=== PATIENT | male | born 2000 | race Hispanic/Latino ===

== ENCOUNTER 2022-10-30 01:26 | Emergency (ER) | payer SELFPAY ==
[2022-10-30] MEDS ORDERED: AMOX/K CLAV 875 MG TAB ONE (02:24)
[2022-10-30] MEDS ORDERED: IBUPROFEN 400 MG TAB ONE (02:24)
--- NOTE | 2022-10-30 08:46 | ER ---
Nurse's Notes [facility] Name: Foster Muhammad Age: 22 yrs Sex: Male : 2000 Arrival Date: 10/30/2022 Time: 01:31 Bed 17 Private MD: Diagnosis: Otitis media, unspecified, bilateral Presentation: 10/30 01:51 Chief complaint: Patient states: left ear pain X2 days. loud popping, whistling and vc1 burping sounds. pain 7/10. Coronavirus screen: Client denies travel out of the [place] in the last 14 days. At this time, the client does not indicate any symptoms associated with coronavirus-19. Ebola Screen: No symptoms or risks identified at this time. Onset of symptoms was October 28, 2022. 01:51 Method Of Arrival: Ambulatory vc1 01:51 Acuity: MILAGROS 4 vc1 02:22 Initial Sepsis Screen: Does the patient meet any 2 criteria? No. Patient's initial vc1 sepsis screen is negative. Does the patient have a suspected source of infection? Yes: Other: ear. Risk Assessment: Do you want to hurt yourself or someone else? Patient reports no desire to harm self or others. Triage Assessment: 01:52 General: Appears in no apparent distress. comfortable, Behavior is calm, cooperative. vc1 Pain: Complains of pain in left ear. EENT: Reports decreased hearing pain ringing. Neuro: No deficits noted. Level of Consciousness is awake, alert, obeys commands, Oriented to person, place, time, situation. Cardiovascular: No deficits noted. Denies chest pain, shortness of breath, Capillary refill < 3 seconds Clubbing of nail beds is absent JVD is absent Patient's skin is warm and dry. Respiratory: No deficits noted. Airway is patent Trachea midline Respiratory effort is even, unlabored, Respiratory pattern is regular, symmetrical. GI: No deficits noted. No signs and/or symptoms were reported involving the gastrointestinal system. Abdomen is round non-distended. : No deficits noted. No signs and/or symptoms were reported regarding the genitourinary system. Derm: No deficits noted. No signs and/or symptoms reported regarding the dermatologic system. Skin is intact, is healthy with good turgor, Skin is dry, Skin is normal, Skin temperature is warm. Musculoskeletal: No deficits noted. No signs and/or symptoms reported regarding the musculoskeletal system. Circulation, motion, and sensation intact. Range of motion: intact in all extremities. Historical: - Allergies: 01:52 No Known Allergies; vc1 - Home Meds: 01:52 None [Active]; vc1 - PMHx: 01:52 None; vc1 - PSHx: 01:52 back; right wrist; vc1 - Immunization history:: Adult Immunizations up to date, Client reports having NOT received the Covid vaccine. Flu vaccine is not up to date. - Social history:: Smoking status: Patient denies any tobacco usage or history of. Patient uses alcohol, occasionally. Smoking status: Patient denies any tobacco usage or history of. Screenin:59 Humpty Dumpty Scale Fall Assessment Tool (age< 18yrs). Abuse screen: Denies threats or vc1 abuse. Nutritional screening: No deficits noted. Tuberculosis screening: No symptoms or risk factors identified. 02:23 [facility] ED Fall Risk Assessment (Adult) History of falling in the last 3 months, vc1 including since admission No falls in past 3 months (0 pts) Confusion or Disorientation No (0 pts) Intoxicated or Sedated No (0 pts) Impaired Gait No (0 pts) Mobility Assist Device Used No (0 pt) Altered Elimination No (0 pt) Score/Fall Risk Level 0 - 2 = Low Risk Oriented to surroundings, Maintained a safe environment. Vital Signs: 01:58 BP 140 / 85; Pulse 98; Resp 17; Temp 99.2; Pulse Ox 98% on R/A; vc1 ED Course: 01:31 Patient arrived in ED. es 01:37 Cal Chairez PA is PHCP. cp 01:37 Heri Cuenca MD is Attending Physician. cp 01:52 Triage completed. vc1 01:52 Arm band placed on right wrist. vc1 01:57 Zabrina Hamm, JOSEPH is Primary Nurse. vc1 02:22 No provider procedures requiring assistance completed. Patient did not have IV access vc1 during this emergency room visit. 02:23 Patient has correct armband on for positive identification. Bed in low position. Call vc1 light in reach. Pulse ox on. NIBP on. Administered Medications: 02:22 Drug: Amoxicillin-Clavulanate PO 875 mg Route: PO; vc1 02:22 Follow up: Response: Medication administered at discharge. vc1 02:22 Drug: Ibuprofen PO 800 mg Route: PO; vc1 02: Follow up: Response: Medication administered at discharge. vc1 Medication: :23 VIS not applicable for this client. vc1 Outcome: 02:11 Discharge ordered by . cp 02:22 Discharged to home ambulatory, with friend. vc1 02: Condition: good 02:22 Discharge instructions given to patient, Instructed on discharge instructions, follow up and referral plans. medication usage, Demonstrated understanding of instructions, follow-up care, medications, Prescriptions given X 2. :23 Patient left the ED. vc1 Signatures: Jaquelin Tejeda Corey, PA PA cp Calcote, Vanessa RN RN vc1
--- NOTE | 2022-10-30 08:46 | EDPHYS ---
Physician Documentation [facility] Name: Foster Muhammad Age: 22 yrs Sex: Male : 2000 Arrival Date: 10/30/2022 Time: 01:31 Bed 17 Private MD: ED Physician Heri Cuenca HPI: 10/30 02:06 This 22 yrs old presents to ER via Ambulatory with complaints of Ear Pain. cp 02:06 The patient presents with pain, that is acute. The complaints affect the left ear. cp Onset: The symptoms/episode began/occurred 2 day(s) ago. Associated signs and symptoms: Pertinent negatives: cough, fever, rhinorrhea, sinus trouble, sore throat. Severity of symptoms: in the emergency department the symptoms are unchanged despite home interventions. Historical: - Allergies: 01:52 No Known Allergies; vc1 - Home Meds: 01:52 None [Active]; vc1 - PMHx: 01:52 None; vc1 - PSHx: 01:52 back; right wrist; vc1 - Immunization history:: Adult Immunizations up to date, Client reports having NOT received the Covid vaccine. Flu vaccine is not up to date. - Social history:: Smoking status: Patient denies any tobacco usage or history of. Patient uses alcohol, occasionally. Smoking status: Patient denies any tobacco usage or history of. ROS: 02:07 Eyes: Negative for injury, pain, redness, and discharge. cp 02:07 Constitutional: Negative for fever, poor PO intake. 02:07 ENT: Positive for ear pain, Negative for drainage from ear(s), sinus congestion, sinus pain, sore throat, difficulty swallowing, difficulty handling secretions. 02:07 Cardiovascular: Negative for chest pain, palpitations. 02:07 Respiratory: Negative for cough, shortness of breath, wheezing. 02:07 Abdomen/GI: Negative for abdominal pain, nausea, vomiting, and diarrhea. 02:07 Neuro: Negative for altered mental status, dizziness, headache, weakness. 02:07 All other systems are negative. Exam: 02:08 Head/Face: Normocephalic, atraumatic. cp 02:08 Constitutional: The patient appears in no acute distress, alert, awake, non-toxic, well developed, well nourished. 02:08 Eyes: Periorbital structures: appear normal, Conjunctiva: normal, no exudate, no injection, Lids and lashes: appear normal, bilaterally. 02:08 ENT: External ear(s): are unremarkable, Ear canal(s): are normal, clear, TM's: bulging, is not appreciated, erythema, that is mild, bilaterally, Nose: is normal, Mouth: Lips: moist, Oral mucosa: moist, Posterior pharynx: is normal, airway is patent, no erythema, no exudate. 02:08 Neck: ROM/movement: is normal, is supple, without pain, no range of motions limitations, no meningismus, Lymph nodes: no appreciated lymphadenopathy. 02:08 Chest/axilla: Inspection: normal. 02:08 Cardiovascular: Rate: normal. 02:08 Respiratory: the patient does not display signs of respiratory distress, Respirations: normal, no use of accessory muscles, no retractions, labored breathing, is not present. 02:08 Skin: no rash present. Vital Signs: 01:58 BP 140 / 85; Pulse 98; Resp 17; Temp 99.2; Pulse Ox 98% on R/A; vc1 MDM: 02:02 Patient medically screened. cp 02:09 Differential diagnosis: otitis media, otitis externa, ruptured TM, foreign body, cp cerumen impaction. Data reviewed: vital signs, nurses notes. Counseling: I had a detailed discussion with the patient and/or guardian regarding: the historical points, exam findings, and any diagnostic results supporting the discharge/admit diagnosis, to return to the emergency department if symptoms worsen or persist or if there are any questions or concerns that arise at home. Administered Medications: 02:22 Drug: Amoxicillin-Clavulanate PO 875 mg Route: PO; vc1 02:22 Follow up: Response: Medication administered at discharge. vc1 02:22 Drug: Ibuprofen PO 800 mg Route: PO; vc1 02:22 Follow up: Response: Medication administered at discharge. vc1 Disposition: 02:39 Co-signature as Attending Physician, Heri Cuenca MD I reviewed the patient's care rn provided by the Advanced Practice Provider and agree with the diagnosis and treatment plan. Disposition Summary: 10/30/22 02:11 Discharge Ordered Location: Home cp Problem: new cp Symptoms: have improved cp Condition: Stable cp Diagnosis - Otitis media, unspecified, bilateral cp Followup: cp - With: Private Physician - When: 2 - 3 days - Reason: Worsening of condition Discharge Instructions: - Discharge Summary Sheet cp - Otitis Media, Adult cp Forms: - Medication Reconciliation Form cp - Thank You Letter cp - Antibiotic Education cp - Prescription Opioid Use cp Prescriptions: - Augmentin 875-125 mg Oral Tablet - take 1 tablet by ORAL route every 12 hours for 10 days; 20 tablet; Refills: 0, cp Product Selection Permitted - Ibuprofen 800 mg Oral Tablet - take 1 tablet by ORAL route every 8 hours As needed take with food; 30 tablet; cp Refills: 0, Product Selection Permitted Signatures: Heri Cuenca MD MD rn Cal Chairez PA PA cp Calcote, Vanessa RN RN vc1
[2022-10-30 13:59] VITALS: BP 140/85; TEMP 99.2; O2SAT 98
== END 2022-10-30 02:23 | disposition home or self-care (01) ==
LOC: ER 01:26 → EDBD 01:26 → ER 02:23
DX: H66.93 Otitis media, unspecified, bilateral (principal)

== ENCOUNTER 2023-12-04 16:49 | Emergency (ER) | payer SELFPAY ==
[2023-12-04] MEDS ORDERED: KETOROLAC 30 MG/ML INJ ONE (17:16)
[2023-12-04 17:47] LABS: Absolute Basophils 0.1 K/uL (0-0.5); Absolute Eosinophils 0.3 K/uL (0-0.5); Absolute Lymphocytes (CBC) 2.6 K/uL (0.7-4.9); Absolute Monocytes 0.7 K/uL (0.1-1.3); Absolute Neutrophil 6.2 K/uL (1.8-8.0); Eosinophils % 2.6 % (0-4.4); Hematocrit 42.9 % (39.6-49.0); Hemoglobin 14.8 g/dL (13.6-17.9); MCH 28.9 pg (27.0-35.0); MCHC 34.5 g/dL (32.0-36.0); Monocytes % 7.5 % (3.3-12.3); Neutrophils % 62.9 % (41.7-73.7); Nucleated Red Blood Cells % 0.4 % (0-0); Platelets 230 thou/uL (152-406); RBC Red Blood Cell Count 5.11 M/uL (4.33-5.43); Red Cell Distribution Width 13.4 % (12.1-15.2)
--- NOTE | 2023-12-04 17:48 | RAD REPORT ---
EXAM DESCRIPTION: Liu Single View12/04/2023 5:23 pm CLINICAL HISTORY: Chest pain COMPARISON: none FINDINGS: The lungs appear clear of acute infiltrate. The heart is normal size IMPRESSION: No acute abnormalities displayed
[2023-12-04 18:04] LABS: Anion Gap 7.8 mEq/L (5.0-15.0); Potassium 3.8 mEq/L (3.5-5.1); Troponin High Sensitivity 4.4 pg/mL (<58.9)
--- NOTE | 2023-12-04 19:05 | ER ---
Nurse's Notes [facility] Name: Foster Muhammad Age: 23 yrs Sex: Male : 2000 Arrival Date: 12/04/2023 Time: 16:49 Bed 10 Private MD: Diagnosis: Chest pain, unspecified-chest wall pain Presentation: 12/03 16:59 Chief complaint: Patient states: left sided chest pain that began 1 week ago and it's aa5 intermittent. Coronavirus screen: At this time, the client does not indicate any symptoms associated with coronavirus-19. Ebola Screen: Patient denies travel to an Ebola-affected area in the 21 days before illness onset. Initial Sepsis Screen: Does the patient meet any 2 criteria? No. Patient's initial sepsis screen is negative. Does the patient have a suspected source of infection? No. Patient's initial sepsis screen is negative. Risk Assessment: Do you want to hurt yourself or someone else? Patient reports no desire to harm self or others. Onset of symptoms was November 2023. 16:59 Acuity: MILAGROS 3 aa5 16:59 Method Of Arrival: Ambulatory aa5 Historical: - Allergies: 17:00 No Known Allergies; aa5 - Home Meds: 17:00 None [Active]; aa5 - PMHx: 17:00 None; aa5 - PSHx: 17:00 back; right wrist; aa5 - Immunization history:: Adult Immunizations up to date. - Infectious Disease History:: Denies. - Social history:: Smoking status: Patient reports the use of cigarette tobacco products. Screenin:[facility] ED Fall Risk Assessment (Adult) History of falling in the last 3 months, tl4 including since admission No falls in past 3 months (0 pts) Confusion or Disorientation No (0 pts) Intoxicated or Sedated No (0 pts) Impaired Gait No (0 pts) Mobility Assist Device Used No (0 pt) Altered Elimination No (0 pt) Score/Fall Risk Level 0 - 2 = Low Risk Oriented to surroundings, Maintained a safe environment, Educated pt \T\ family on fall prevention, incl call for assistance when getting out of bed, Assessed \T\ reinforced patient's understanding of fall precautions, Hourly rounding (assess needs \T\ fall precautionary measures) done, Used ambulatory aids as needed (educated on \T\ assisted with), Used gait belt as appropriate. Abuse screen: Denies threats or abuse. Denies injuries from another. Nutritional screening: No deficits noted. Tuberculosis screening: No symptoms or risk factors identified. Assessment: 17:41 General: Appears in no apparent distress. Behavior is calm, cooperative. Pain: tl4 Complains of pain in chest Pain does not radiate. Pain began gradually, 2-3 days ago. Alleviated by nothing. Aggravated by none. Neuro: Level of Consciousness is awake, alert, obeys commands, Oriented to person, place, time, situation, Moves all extremities. Full function Gait is steady, Speech is normal, Facial symmetry appears normal. Cardiovascular: Reports chest pain, Denies diaphoresis, lightheadedness, palpitations, shortness of breath, syncope, Capillary refill < 3 seconds Patient's skin is warm and dry. Rhythm is sinus rhythm. Respiratory: Airway is patent Respiratory effort is even, unlabored, Respiratory pattern is regular, symmetrical, Breath sounds are clear bilaterally. GI: No signs and/or symptoms were reported involving the gastrointestinal system. : No signs and/or symptoms were reported regarding the genitourinary system. EENT: No signs and/or symptoms were reported regarding the EENT system. Derm: No signs and/or symptoms reported regarding the dermatologic system. Musculoskeletal: No signs and/or symptoms reported regarding the musculoskeletal system. 18:25 Reassessment: No changes from previously documented assessment. Patient and/or family tl4 updated on plan of care and expected duration. Pain level reassessed. Patient is alert, oriented x 3, equal unlabored respirations, skin warm/dry/pink. Patient states symptoms have not improved. 19:24 Reassessment: No changes from previously documented assessment. Patient and/or family tl4 updated on plan of care and expected duration. Pain level reassessed. Patient is alert, oriented x 3, equal unlabored respirations, skin warm/dry/pink. Vital Signs: 16:59 BP 157 / 86; Pulse 86; Resp 16 S; Temp 97.5(TE); Pulse Ox 100% on R/A; Weight 104.33 kg aa5 (R); Height 5 ft. 6 in. (R); 17:43 BP 128 / 95; Pulse 80; Resp 22; Pulse Ox 98% on R/A; Pain 8/10; tl4 18:26 BP 143 / 95; Pulse 72; Resp 18; Pulse Ox 98% on R/A; tl4 19:24 BP 135 / 75; Pulse 70; Resp 16; Temp 98(O); Pulse Ox 100% on R/A; Pain 6/10; tl4 16:59 Body Mass Index 37.12 (104.33 kg, 167.64 cm) aa5 17:43 Pain Scale: Adult tl4 19:24 Pain Scale: Adult tl4 Vitals: 17:43 Cardiac Rhythm Assessment Regular Sinus rhythm. tl4 Marc Coma Score: 17:43 Eye Response: spontaneous(4). Motor Response: obeys commands(6). Verbal Response: tl4 oriented(5). Total: 15. ED Course: 16:51 Patient arrived in ED. im 16:54 Letha Garcia FNP-C is PHCP. kb 16:54 Dallas Diaz MD is Attending Physician. kb 16:59 Arm band placed on. aa5 17:00 Triage completed. aa5 17:05 Stiven Maxwell, JOSEPH is Primary Nurse. tl4 17:25 XRAY Chest (1 view) In Process Unspecified. EDMS 17:29 EKG done, by ED staff, reviewed by Letha ZAMARRIPA. tl4 17:40 Initial lab(s) drawn, by nv, sent to lab. Inserted saline lock: 22 gauge in right tl4 antecubital area, using aseptic technique. Blood collected. 17:40 No provider procedures requiring assistance completed. O2 via room air. tl4 17:41 Basic Metabolic Panel Sent. tl4 17:41 CBC with Diff Sent. tl4 17:41 Troponin HS Sent. tl4 17:44 Patient has correct armband on for positive identification. Placed in gown. Bed in low tl4 position. Call light in reach. Side rails up X 1. Provided Education on: ED process. Client placed on continuous cardiac and pulse oximetry monitoring. NIBP monitoring applied. monitor worker on. Door closed. Noise minimized. Lights dimmed. Moved to private room. 19:24 IV discontinued, intact, bleeding controlled, No redness/swelling at site. Pressure tl4 dressing applied. Administered Medications: 17:41 Drug: Ketorolac IVP 15 mg IVP once Route: IVP; Site: right antecubital; tl4 18:25 Follow up: Response: No adverse reaction; Pain is unchanged, physician notified tl4 Medication: 17:43 VIS not applicable for this client. tl4 Outcome: 19:05 Discharge ordered by . kb 19:24 Discharged to home ambulatory, tl4 19:24 Condition: good 19:24 Discharge instructions given to patient, Instructed on discharge instructions, follow up and referral plans. medication usage, Demonstrated understanding of instructions, follow-up care, medications, Prescriptions given X 1, 19:25 Patient left the ED. tl4 Signatures: Dispatcher [employer] EDMS Letha Garcia, LEARNING CENTER INSTRUCTOR-C LEARNING CENTER INSTRUCTOR-CkLisa Staley, RN RN aa5 Herlinda Roman Toni, RN RN tl4
--- NOTE | 2023-12-04 19:05 | EDPHYS ---
Physician Documentation [facility] Name: Foster Muhammad Age: 23 yrs Sex: Male : 2000 Arrival Date: 12/04/2023 Time: 16:49 Bed 10 Private MD: ED Physician Dallas Diaz HPI: 12/03 17:21 This 23 yrs old Male presents to ER via Ambulatory with complaints of Chest kb Pain. 17:21 Pt is a 23 year old male who presents for left sided chest pain that started one week kb ago. Denies cough, congestion, shortness of breath, fever. States pain is worse with movement, palpation and inspiration. . Historical: - Allergies: 17:00 No Known Allergies; aa5 - Home Meds: 17:00 None [Active]; aa5 - PMHx: 17:00 None; aa5 - PSHx: 17:00 back; right wrist; aa5 - Immunization history:: Adult Immunizations up to date. - Infectious Disease History:: Denies. - Social history:: Smoking status: Patient reports the use of cigarette tobacco products. ROS: 17:23 Constitutional: As per HPI kb Exam: 17:23 Constitutional: This is a well developed, well nourished patient who is awake, alert, kb and in no acute distress. Head/Face: Normocephalic, atraumatic. ENT: Moist Mucous membranes Cardiovascular: Regular rate Respiratory: Respirations even and unlabored. No increased work of breathing. Talking in full sentences Abdomen/GI: Soft, non-tender. No distention Skin: Warm, dry with normal turgor. Normal color. MS/ Extremity: Pulses equal, no cyanosis. Neurovascular intact. Full, normal range of motion. Neuro: Awake and alert, GCS 15, oriented to person, place, time, and situation. Moves all extremities. Normal gait. 17:23 Chest/axilla: Inspection: normal, Palpation: tenderness, that is mild, of the left breast, Vital Signs: 16:59 BP 157 / 86; Pulse 86; Resp 16 S; Temp 97.5(TE); Pulse Ox 100% on R/A; Weight 104.33 kg aa5 (R); Height 5 ft. 6 in. (R); 17:43 BP 128 / 95; Pulse 80; Resp 22; Pulse Ox 98% on R/A; Pain 8/10; tl4 18:26 BP 143 / 95; Pulse 72; Resp 18; Pulse Ox 98% on R/A; tl4 19:24 BP 135 / 75; Pulse 70; Resp 16; Temp 98(O); Pulse Ox 100% on R/A; Pain 6/10; tl4 16:59 Body Mass Index 37.12 (104.33 kg, 167.64 cm) aa5 17:43 Pain Scale: Adult tl4 19:24 Pain Scale: Adult tl4 Cook Coma Score: 17:43 Eye Response: spontaneous(4). Motor Response: obeys commands(6). Verbal Response: tl4 oriented(5). Total: 15. MDM: 16:54 Patient medically screened. kb 17:23 Data reviewed: vital signs, nurses notes. kb 19:04 Differential diagnosis: abnormal EKG, acute myocardial infarction, chest wall pain. kb Counseling: I had a detailed discussion with the patient and/or guardian regarding the historical points, exam findings, and any diagnostic results supporting the discharge/admit diagnosis, lab results, radiology results, the need for outpatient follow up, a family practitioner, to return to the emergency department if symptoms worsen or persist or if there are any questions or concerns that arise at home. 12/03 17:01 Order name: Basic Metabolic Panel; Complete Time: 18:05 kb 12/03 17:01 Order name: CBC with Diff; Complete Time: 18:01 kb 12/03 17:01 Order name: Troponin HS; Complete Time: 18:05 kb 12/03 17:01 Order name: XRAY Chest (1 view); Complete Time: 18:01 kb 12/03 17:01 Order name: Cardiac monitoring; Complete Time: 17:29 kb 12/03 17:01 Order name: EKG - Nurse/Tech; Complete Time: 17:29 kb 12/03 17:01 Order name: IV Saline Lock; Complete Time: 17:41 kb 12/03 17:01 Order name: Labs collected and sent; Complete Time: 17:41 kb 12/03 17:01 Order name: O2 Per Protocol; Complete Time: 17:06 kb 12/03 17:01 Order name: O2 Sat Monitoring; Complete Time: 17:06 kb Administered Medications: 17:41 Drug: Ketorolac IVP 15 mg IVP once Route: IVP; Site: right antecubital; tl4 18:25 Follow up: Response: No adverse reaction; Pain is unchanged, physician notified tl4 Disposition Summary: 12/04/23 19:05 Discharge Ordered Notes: Location: Home kb Condition: Stable kb Diagnosis - Chest pain, unspecified - chest wall pain kb Followup: kb - With: Emergency Department - When: As needed - Reason: Worsening of condition Followup: kb - With: Private Physician - When: 2 - 3 days - Reason: Recheck today's complaints, Continuance of care, Re-evaluation by your physician Discharge Instructions: - Discharge Summary Sheet kb - Chest Wall Pain, Jyuy-ro-[id number] kb Forms: - Medication Reconciliation Form kb - Antibiotic Education kb - Prescription Opioid Use kb - Patient Portal Instructions kb - Leadership Thank You Letter kb Prescriptions: - Ibuprofen 800 mg Oral Tablet - take 1 tablet ORAL route every 8 hours As needed take with food; 30 tablet; kb Refills: 0, Product Selection Permitted Signatures: Dispatcher [employer] EDLetha Chase, PELON-C PELON-Lisa Waldron, RN RN aa5 Stiven Maxwell RN RN tl4 Corrections: (The following items were deleted from the chart) 17:01 17:01 BASIC METABOLIC PANEL+C.LAB.BRZ ordered. EDMS EDMS 17:01 17:01 CBC+H.LAB.BRZ ordered. EDMS EDMS 17:01 17:01 Troponin High Sensitivity+C.LAB.BRZ ordered. EDMS EDMS 17:02 17:02 Chest Single View+RAD.RAD.BRZ ordered. EDMS EDMS
[2023-12-04 19:51] VITALS: BP 135/75; TEMP 98; O2SAT 100
--- NOTE | 2023-12-07 13:03 | EKG ---
Test Date: 2023-12-04 Test Time: 17:25:50 Slider Assembler: TL MEASUREMENT RESULTS: Intervals: Rate: 80 MT: 146 QRSD: 84 QT: 368 QTc: 424 [place]: P: 39 MT: 146 QRS: 79 T: 53 INTERPRETIVE STATEMENTS: Normal sinus rhythm Normal ECG No previous ECG available for comparison Electronically Signed On 12-07-23 12:56:19 CDT by [place]
== END 2023-12-04 19:25 | disposition home or self-care (01) ==
LOC: ER 16:49
DX: R07.89 Other chest pain (principal); Z72.0 Tobacco use
CPT/HCPCS: 36415; 71045; 80048; 84484; 85025; 93005

== ENCOUNTER 2024-12-30 19:25 | Emergency (ER) | payer SELFPAY ==
[2024-12-30] MEDS ORDERED: TDAP (DIPHTH,PERTUSS(ACELL),TET VAC) 0.5 ML VIAL IMVAC ONE (19:40)
[2024-12-30] MEDS ORDERED: LIDOCAINE 2% W/EPI 1:200,000 MPF 20 ML VIAL IM ONE (19:40)
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
[2024-12-30] MEDS ORDERED: MUPIROCIN 2% OINT 22GM TUBE TOP ONE (20:17)
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
[2024-12-30 20:42] VITALS: BP 132/105; TEMP 98.2; O2SAT 98
== END 2024-12-30 20:35 | disposition home or self-care (01) ==
LOC: ER 19:25
DX: S71.111A Laceration without foreign body, right thigh, initial encounter (principal)
CPT/HCPCS: 90715; 96372; 99284